=== PATIENT | male | born 1950 | race Caucasian/White ===

== ENCOUNTER 2018-11-28 12:08 | Outpatient (CLI) | payer OTHER ==
--- NOTE | 2018-11-28 13:46 | CT ---
CT CHEST WITHOUT CONTRAST: Date: 11/28/18 PROVIDED CLINICAL HISTORY: Tobacco abuse. FINDINGS: Comparison with 01/05/14. Low dose chest CT protocol was performed. Slightly greater than physiologic pericardial fluid. Vascular calcification, including coronary calci um. Heart, pericardium, and great vessels are suboptimally evaluated in the absence of IV contrast, b ut appear otherwise unremarkable in their unenhanced CT appearance. There is no evidence for thoracic lymph node enlargement. The airway appears patent and of normal caliber. The lungs are free of significant opacity. No pleural fluid, pleural thickening, or pneumothorax apparent. The osseous structures demonstrate no concerning lytic or blastic lesions. IMPRESSION: 1. Lung-RADS Category 1 - Negative. Continue annual screening. 2. Trace pericardial effusion. 3. Vascular calcification, including coronary calcium. POS: [facility]
== END 2018-11-28 12:09 | disposition home or self-care (01) ==
LOC: CT 12:08
DX: Z12.2 Encounter for screening for malignant neoplasm of respiratory organs (principal); I70.90 Unspecified atherosclerosis; I31.3 Pericardial effusion (noninflammatory)
CPT/HCPCS: G0297

== ENCOUNTER 2020-04-07 22:08 | Emergency (ER) | payer MEDICARE, OTHER ==
[2020-04-07 22:39] LABS: #Eosinphils 0.5 thou/uL (0.0-0.7); #Lymphocytes 1.6 thou/uL (1.20-3.40); #Monocytes 0.7 thou/uL (0.11-0.59); #Neutrophils 5.1 thou/uL (1.40-6.50); %Basophils 0.5 % (0.0-1.0); %Eosinophils 5.8 % (0.0-10.0); %Lymphocytes 20.3 % (21.0-51.0); %Monocytes 8.7 % (0.0-10.0); %Neutrophils 64.6 % (42.0-75.0); Hemoglobin 11.1 g/dL (14.0-18.0); Mean Corpuscular HGB CONC 33.2 g/dL (32.0-36.0); Mean Corpuscular Hemoglobin 30.2 pg (27.0-31.0); Mean Corpuscular Volume 90.9 fL (78.0-98.0); Mean Platelet Volume 8.2 fL (7.4-10.4); Platelet Count 228 thou/uL (130-400); RBC Distribution Width 12.2 % (11.5-14.5); Red Blood Cell (RBC) Count 3.69 mill/uL (4.70-6.10); White Blood Cell (WBC) Count 7.9 thou/uL (4.8-10.8)
[2020-04-07 22:47] LABS: PTT 28.9 sec (22.9-36.1); Prothrombin Time 13.3 sec (12.0-14.7)
[2020-04-07 22:53] LABS: Bilirubin Negative (Negative); Blood, Urine Negative (Negative); Clarity Clear (Clear); Glucose, Urine (Dipstick) Normal (Negative); Ketone, Urine Negative (Negative); Leukocyte Negative Leu/uL (Negative); Nitrite Negative (Negative); Protein, Urine (Dipstick) 20 mg/dL (Neg-Trace); Specific Gravity, Urine 1.011 (1.002-1.036); Urobilinogen Normal mg/dL (Less than 2)
[2020-04-07 23:52] LABS: ALT (SGPT) Less than 7 U/L (8-55); AST (SGOT) 12 U/L (5-34); Albumin 3.4 g/dL (3.4-4.8); Alkaline Phosphatase 55 U/L (40-110); Anion Gap 14 mmol/L (10-20); BUN (Urea Nitrogen) 35 mg/dL (8.4-25.7); Bilirubin, Total 0.2 mg/dL (0.2-1.2); CK (CPK) 44 U/L (30-200); Calc. Creatinine Clearance 0 mL/min (70-130); Calcium 8.5 mg/dL (7.8-10.44); Carbon Dioxide 25 mmol/L (23-31); Chloride 111 mmol/L (98-107); Globulin 1.9 g/dL (2.4-3.5); Glucose 159 mg/dL (80-115); Potassium 4.4 mmol/L (3.5-5.1); Protein, Total 5.3 g/dL (5.8-8.1); Sodium 146 mmol/L (136-145)
[2020-04-08 05:23] LABS: SARS-CoV-2 PCR by NAA Not Detected (NotDetected)
== END 2020-04-08 00:11 | disposition home or self-care (01) ==
LOC: ERS 22:08
DX: R53.1 Weakness (principal); Z20.822 Contact with and (suspected) exposure to COVID-19; Z79.899 Other long term (current) drug therapy; I25.10 Atherosclerotic heart disease of native coronary artery without angina pectoris; E11.42 Type 2 diabetes mellitus with diabetic polyneuropathy; E78.5 Hyperlipidemia, unspecified; E78.00 Pure hypercholesterolemia, unspecified; I10 Essential (primary) hypertension; F17.210 Nicotine dependence, cigarettes, uncomplicated; F17.220 Nicotine dependence, chewing tobacco, uncomplicated
CPT/HCPCS: 36415; 36416; 51701; 70450; 71045; 80053; 81003; 82550; 83605; 84484; 85025; 85610; 85730; 87040; 87086; 87635; 87804; 93005; U0003; U0005